=== PATIENT | male | born 1995 | race Caucasian/White ===

== ENCOUNTER 2017-01-04 02:19 | Emergency (ER) | payer BC ==
[~2017-01-04] VITALS: Ht 175.3 cm; Wt 91.2 kg
[2017-01-04 02:47] VITALS: BP 147/77
--- NOTE | 2017-01-04 02:51 | Emergency Room Report ---
History of Present Illness Time Seen by MD Solis Presenting Problem in Triage Pt arrived:Walked Presenting Problem:Lac to left eyebrow. 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 N Clinical Suspician of Infection? N Mental Status: 1 - Regular (Normal Baseline) Sepsis Risk:Low Sepsis Risk Have you (or family members/close friends) recently traveled outside the [place]? N If Yes, where/when: Have you had exposure to infectious disease within the past month? N TB? Other? Specify: Source patient, RN notes reviewed, family, old records Exam Limitations no limitations Comment chopping wd and hit in rt eyebrow with 1 cm lac this am - no eye pain or sx Cardiac Chest Pain Chest pain indicative of cardiac No Timing/Duration this evening Severity moderate ALLERGIES Coded Allergies: No Known Allergies (05/10/15) Home Medications Reported Medications No Known Home Medications History Medical History General CAD? No Angina: No NH: No Hypertension? No Hyperlipidemia? No CHF? No DVT? No PE? No COPD? No Asthma? No Anemia? No GERD? No Gastric ulcers? No GI Bleed? No Hernia? No Thyroid Problems? No Hypothyroidism? No CVA? No Seizures? No Diabetes? No Renal Insuffiency? No End Stage Renal Disease? No UTI? No Stones? No BPH? No GB Disease: No Nephritic Syndrome? No Asplenia? No Hepatitis? No Sickle Cell Disease? No Arthritis? No Migraines? No Cataracts? No Glaucoma? No MRSA? No HIV? No TB? No Anxiety? No Depression? No Cancer? No More? No Immunization Hx DT/Tetanus 1-4 Years Ago Surgical Hx Previous Surgery?N Social History Smoking Hx Smoker: Never Smoker Tobacco: No Alcohol Alcohol: No Drugs none Review of Systems All Other Systems Reviewed and Negative Constitutional denies fever Eyes denies drainage ENT denies: ear pain, epistaxis, throat pain. Respiratory denies cough, denies shortness of breath Cardiovascular denies syncope Gastrointestinal denies diarrhea, denies vomiting Genitourinary denies: dysuria, frequency, hesitancy. Musculoskeletal denies back pain, denies joint pain, denies joint swelling, denies neck pain Skin see HPI, denies rash, other Psychiatric/Neurological denies headache, denies seizure Physical Exam Vital Signs Vital Signs Date Time Temp Pulse Resp B/P Pulse O2 O2 Flow FiO2 Ox Delivery Rate 01/04 0227 98.1 78 20 147/77 96 - WBC >12,000 or <4,000 or 10% bands? 2 or more SIRS Criteria Met? B/P:147/77 MAP:100 Creatinine >2.0? UA output<0.5ml/kg/hr for 2 hrs? Platelet count >100,000? Lactate >2.0mmol/1? INR >1.2 or PTT > than 60 sec? Evidence of Organ Dysfunction? Provider documented clinical suspician of infection? N Sepsis Criteria Count: 1 Sepsis Risk: Low Sepsis Risk General Appearance no apparent distress Eye Exam - bilateral eye PERRL, bilateral eye EOMI Ear, Nose, Throat normal ENT inspection Neck non-tender Respiratory Status No: respiratory distress. 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 No Results/Orders Current Medication Orders Sig/Julian Start time Last Medication Dose Route Stop Time Status Admin Lidocaine HCl 0 .STK-MED ONE 01/04 0230 DC .ROUTE Procedures Laceration/Wound Repair Laceration/Wound Repair Risks/benefits discussed with pt/guardian? Yes Tetanus status up to date Wound Location face Wound Length (cm) 1 Wound's Depth, Shape sucutaneous tissue Wound Explored no FB identified Risk of retained FB explained to pt/guardian? Yes Irrigated w/ Saline (ccs) 0 Wound Prep Hibiclens, Saline Anesthesia 1% Lidocaine, Local Volume Anesthetic (ccs) 2 Wound Debrided none Wound Repaired With sutures Suture Size/Type 5:0, Proline Layer Closure No Total Number Sutures 5 Sterile Dressing Applied No Splint Applied No Sling Applied No Departure Departure Time of Disposition 0246 Disposition DC Home or Self Care(routine) Clinical Impression Primary Impression: Laceration of eyebrow, left Qualifiers: Encounter type: initial encounter Qualified Code: S01.112A - Laceration without foreign body of left eyelid and periocular area, initial encounter Condition STABLE Patient Instructions DI for Laceration Repair Additional Instructions suture out 8 days and recheck if needed Discharge Counseling Counseled pt/family regarding diagnosis, follow up needs Prescriptions Current Visit Scripts No Known Home Medications ED Critical Care Critical Care No at 0251
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
--- OUTSIDE RECORDS SUMMARY | 2017-01-15 17:16 | External Medical Summary Rpt ---
Author Author , ANGELICA VALLE Address Unknown Phone [email or web address] Immunization Name Date Rout CVX Reac Dose Comm Prov Is Faci e tion ent ider Refu lity Give sed n DTP- 09-2 22 999 Hist H181 No H181 Hib 0-19 oric 96 al Info rmat ion - Sour ce Unsp ecif ied MMR 08-0 3 999 Hist H181 No H181 7-19 oric 96 al Info rmat ion - Sour ce Unsp ecif ied Hep 06-0 45 999 Hist H181 No H181 B, 5-19 oric UF 96 al Info rmat ion - Sour ce Unsp ecif ied
--- OUTSIDE RECORDS SUMMARY | 2017-01-15 17:16 | External Medical Summary Rpt ---
Author Author , ANGELICA VALLE Address Unknown Phone [email or web address] Immunization Name Date Rout CVX Reac Dose [...]
== END 2017-01-04 03:01 | disposition home or self-care (01) ==
LOC: ER 02:19
PROC: 0HQ1XZZ Repair Face Skin, External Approach (ICD-10-PCS; principal; 2017-01-04)
DX: S01.112A Laceration without foreign body of left eyelid and periocular area, initial encounter (principal); W22.8XXA Striking against or struck by other objects, initial encounter

== ENCOUNTER 2017-01-14 15:13 | Emergency (ER) | payer BC ==
[2017-01-14 15:33] VITALS: BP 127/62
== END 2017-01-14 15:35 | disposition home or self-care (01) ==
LOC: UTC 15:13
DX: S01.112D Laceration without foreign body of left eyelid and periocular area, subsequent encounter (principal)